=== PATIENT | female | born 1960 | race Caucasian/White ===

== ENCOUNTER 2016-11-13 09:43 | Emergency (ER) | payer BC ==
[~2016-11-13] VITALS: Ht 167.6 cm; Wt 98.5 kg
[~2016-11-13 09:43] MED LIST: Z.0.NO CURRENT MEDS; ZITH250T PO
[2016-11-13 09:46] VITALS: BP 206/100; PULSE 64; RESP 16; TEMP 97.9; O2SAT 100
[2016-11-13 09:59] VITALS: BP 173/109; PULSE 66; RESP 18; O2SAT 99
[2016-11-13] MEDS ORDERED: diphenhydrAMINE HCL 50 MG/ML VIAL IVP ONE (10:00)
[2016-11-13] MEDS ORDERED: PROCHLORPERAZINE INJ 10 MG/2 ML VIAL IVP ONE (10:00)
[2016-11-13] MEDS ORDERED: SODIUM CHLORIDE 0.9% FLUSH 10 ML FLUSH IVF PRN (10:00)
[2016-11-13 10:02] VITALS: O2SAT 99
[2016-11-13] MEDS ORDERED: ASPI81CH CHEW (10:03)
--- NOTE | 2016-11-13 10:10 | PD ---
HPI . Dizziness Chief Complaint: Dizziness Time Seen by Provider: 09:54 Travel History International Travel<30 days: No Contact w/Intl Traveler<30days: No Traveled to known affect area: No History of Present Illness HPI Patient presents with the acute onset of dizziness. She noted it on awakening at 5 this morning to take her dog out. She states that the dizziness feels like she is on a bed. She laid back down and awakened a few hours later with continued dizziness. She also has a headache which she rates as 7/10. The pain is a constant pain in the occipital area of the scalp. She took 2 aspirin without relief. She reports no exacerbating or relieving factors. The headache and dizziness are associated with blurred vision. She does not describe diplopia. [facility] Past Medical History Hypertension: Yes ?: Not Past Surgical History Cholecystectomy: Yes Social History Alcohol Use: Yes (ocassional) Tobacco Use: No Substance Use: No Allergies-Medications (Allergen,Severity, Reaction): Coded Allergies: Tetracyclines (Verified Allergy, Severe, HIVES/ VOMITING, 11/13/16) Naproxen (Verified Adverse Reaction, Severe, JOINT SWELLING, 11/13/16) Reported Meds & Prescriptions Reported Meds & Active Scripts Active Reported Aspirin 81 Mg Chew 162 Mg CHEW ONCE Review of Systems Except as stated in HPI: all other systems reviewed are Neg General / Constitutional: No: Fever, Chills Eyes: Positive: Blurred Vision, No: Diploplia, Photophobia HENT: Positive: Headaches, Lightheadedness Cardiovascular: No: Chest Pain or Discomfort Respiratory: No: Shortness of Breath Gastrointestinal: No: Nausea, Vomiting, Diarrhea Neurologic: Positive: Dizziness, Ataxia, Headache, No: Syncope, Focal Abnormalities, Tremor, Change in Mentation, Slurred Speech, Paresthesia, Incontinence, Seizures Physical Exam Narrative GENERAL: Patient is awake and alert and does not appear to be in any acute distress. SKIN: Warm and dry. HEAD: Atraumatic. Normocephalic. EYES: Pupils equal and round. Extraocular movements are intact. ENT: No nasal bleeding or discharge. Mucous membranes pink and moist. NECK: Trachea midline. Neck is supple. CARDIOVASCULAR: Regular rate and rhythm. Heart sounds are normal. RESPIRATORY: No accessory muscle use. Lungs are clear with good air movement throughout. GASTROINTESTINAL: Abdomen soft, non-tender, nondistended. MUSCULOSKELETAL: No obvious deformities. No edema. NEUROLOGICAL: Awake and alert. No obvious cranial nerve deficits. Motor grossly within normal limits. Normal speech. Normal [id number]-cztr-hvatqi exam. PSYCHIATRIC: Appropriate mood and affect; insight and judgment normal. Data Data Last Documented VS Vital Signs Date Time Temp Pulse Resp B/P Pulse Ox O2 Delivery O2 Flow Rate FiO2 11/13/16 10:26 82 18 156/83 95 11/13/16 10:02 Room Air 11/13/16 09:46 97.9 Orders Complete Blood Count With Diff (11/13/16 09:59) Basic Metabolic Panel (Bmp) (11/13/16 09:59) Ct Brain W/O Iv Contrast(Rout) (11/13/16 09:59) Ecg Monitoring (11/13/16 09:59) Iv Access Insert/Monitor (11/13/16 09:59) Oximetry (11/13/16 09:59) Sodium Chloride 0.9% Flush (Ns Flush) (11/13/16 10:00) Prochlorperazine Inj (Compazine Inj) (11/13/16 10:00) Diphenhydramine Inj (Benadryl Inj) (11/13/16 10:00) Labs Laboratory Tests Test 11/13/16 10:10 White Blood Count 5.3 TH/MM3 Red Blood Count 4.74 MIL/MM3 Hemoglobin 14.3 GM/DL Hematocrit 42.8 % Mean Corpuscular Volume 90.5 FL Mean Corpuscular Hemoglobin 30.1 PG Mean Corpuscular Hemoglobin 33.3 % Concent Red Cell Distribution Width 12.7 % Platelet Count 182 TH/MM3 Mean Platelet Volume 7.2 FL Neutrophils (%) (Auto) 60.8 % Lymphocytes (%) (Auto) 31.5 % Monocytes (%) (Auto) 5.9 % Eosinophils (%) (Auto) 1.3 % Basophils (%) (Auto) 0.5 % Neutrophils # (Auto) 3.2 TH/MM3 Lymphocytes # (Auto) 1.7 TH/MM3 Monocytes # (Auto) 0.3 TH/MM3 Eosinophils # (Auto) 0.1 TH/MM3 Basophils # (Auto) 0.0 TH/MM3 CBC Comment DIFF FINAL Differential Comment Sodium Level 144 MEQ/L Potassium Level 4.2 MEQ/L Chloride Level 109 MEQ/L Carbon Dioxide Level 29.2 MEQ/L Anion Gap 6 MEQ/L Blood Urea Nitrogen 13 MG/DL Creatinine 0.84 MG/DL Estimat Glomerular Filtration 71 ML/MIN Rate Random Glucose 92 MG/DL Calcium Level 8.6 MG/DL [facility] Medical Decision Making Medical Screen Exam Complete: Yes Emergency Medical Condition: Yes Differential Diagnosis Differential diagnosis of dizziness includes but is not limited to vertigo, dehydration, acute blood loss, sepsis, ACS Narrative Course Patient presents with dizziness, headache and blurred vision. Her blood pressure initially is elevated. I will treat her initially with Compazine and Benadryl. I have ordered a CT of her brain. CBC & BMP Diagram 11/13/16 10:[address] 11/13/16 0959 Signed Impressions: Service Date/Time: Sunday, November 13, 2016 10:09 - CONCLUSION: Normal examination. Juan Pablo Guillen MD Patient's symptoms are improved. Diagnosis Primary Impression: Headache Qualified Code: G44.209 - Acute non intractable tension-type headache Additional Impressions: Dizziness Blurred vision, bilateral Patient Instructions: Acute Headache (DC), Blurred Vision (ED), Dizziness (ED) , General Instructions Med/Other Pt SpecificInfo: Prescription(s) given Scripts Wjkisbohnq-Fssynggrgkjul-Usyvbnqs (Fioricet)50-300-40 Mg Cap1 Cap PO Q4H PRN ( HEADACHE) #12 CAP Ref 0 Prov:Marii Arora MD 11/13/16 Disposition: 01 DISCHARGE HOME Condition: Stable Marii Arora MD November 13, 2016 10:10
[2016-11-13 10:17] LABS: AUTOMATED NEUTROPHIL # 3.2 TH/MM3 (1.8-7.7); BASOPHIL % 0.5 % (0.0-2.0); EOSINOPHIL # 0.1 TH/MM3 (0-0.4); EOSINOPHIL % 1.3 % (0.0-4.0); HEMATOCRIT 42.8 % (35.0-46.0); HEMO FLAGS DIFF FINAL; LYMPH % 31.5 % (9.0-44.0); LYMPHOCYTE # 1.7 TH/MM3 (1.0-4.8); MEAN CELL VOLUME 90.5 FL (80.0-100.0); MEAN CORPUSCULAR HEMOGLOBIN 30.1 PG (27.0-34.0); MEAN CORPUSCULAR HGB CONC 33.3 % (32.0-36.0); MONO % 5.9 % (0.0-8.0); NEUT % 60.8 % (16.0-70.0); PLATELET COUNT 182 TH/MM3 (150-450); RED BLOOD COUNT 4.74 MIL/MM3 (4.00-5.30); RED CELL DISTRIBUTION WIDTH 12.7 % (11.6-17.2); WHITE BLOOD COUNT 5.3 TH/MM3 (4.0-11.0)
[2016-11-13 10:26] VITALS: BP 156/83; PULSE 82; RESP 18; O2SAT 95
[2016-11-13 10:26] LABS: POTASSIUM 4.2 MEQ/L (3.5-5.1)
[2016-11-13 10:28] LABS: BICARBONATE 29.2 MEQ/L (21.0-32.0)
--- NOTE | 2016-11-13 10:31 | RADHPO ---
EXAM DATE/TIME: 11/13/2016 10:09 [facility] COMPARISON: No previous studies available for comparison. INDICATIONS : Headache, blurred vision, dizziness for 5 hours with increased blood pressure 206/100 RADIATION DOSE: 64.03 CTDIvol (mGy) MEDICAL HISTORY : Hypertension. SURGICAL HISTORY : Cholecystectomy. ENCOUNTER: Initial ACUITY: 4 - 6 days PAIN SCALE: 7/10 LOCATION: cranial TECHNIQUE: Multiple contiguous axial images were obtained of the head. Using automated exposure control and adj ustment of the mA and/or kV according to patient size, radiation dose was kept as low as reasonably a chievable to obtain optimal diagnostic quality images. FINDINGS: CEREBRUM: The ventricles are normal for age. No evidence of midline shift, mass lesion, hemorrhage or acute in farction. No extra-axial fluid collections are seen. POSTERIOR FOSSA: The cerebellum and brainstem are intact. The 4th ventricle is midline. The cerebellopontine angle i s unremarkable. EXTRACRANIAL: The visualized portion of the orbits is intact. SKULL: The calvaria is intact. No evidence of skull fracture. CONCLUSION: Normal examination. Juan Pablo Guillen MD on November 13, 2016 at 10:29 Board Certified Radiologist. This report was verified electronically.
[2016-11-13] MEDS ORDERED: BUTA1CAP PO (10:48)
[2016-11-13 10:54] VITALS: BP 153/89; PULSE 59; RESP 18; O2SAT 99
== END 2016-11-13 11:04 | disposition home or self-care (01) ==
LOC: PHED 09:43
DX: R51 Headache (principal); R42 Dizziness and giddiness; H53.8 Other visual disturbances; I10 Essential (primary) hypertension
CPT/HCPCS: 70450; 80048; 85025; 96374; 96375; 99285; J0780; J1200